=== PATIENT | male | born 2000 | race Caucasian/White ===

== ENCOUNTER 2024-05-21 06:49 | Emergency (ER) | payer OTHER, SELFPAY ==
[2024-05-21 06:51] VITALS: BP 138/98
[2024-05-21] MEDS: ZOFRAN 4 MG IV (07:19)
[2024-05-21] MEDS: TORADOL 30 MG IV (07:19)
[2024-05-21] MEDS: NSS 1000 IV (07:20)
[2024-05-21 07:22] VITALS: BMI 24.7
--- NOTE | 2024-05-21 07:22 | ED.GENMED ---
History of Present Illness
General
Chief Complaint: Cold/Flu/URI Symptoms
Source: patient and family
Exam Limitations: none
Time Seen by Provider: 05/21/24 07:04
Nursing documentation reviewed up to this point in time: agreed with
History of Present Illness
History of Present Illness:
24-year-old male limited past medical history nondrinker non-smoker he is a student presents with nausea vomiting diarrhea fever cough malaise only kept down some Gatorade for the past few days, no sick contacts no foreign travel no raw or
undercooked foods
Past History
Past History
ED Past Medical History: None
ED Past Surgical History: None
Social History
Tobacco: Non-smoker
Alcohol: None
Drug: None
Personal: Single
Living: with family
Employment: Student
Review of Systems
Review of Systems
All Other Systems: Not applicable
Constitutional: Reports fever and fatigue
Respiratory: Reports cough and trouble breathing
ABD/GI: Reports abdominal pain, nausea, vomiting and diarrhea
: Reports no symptoms
Musculoskeletal: Reports muscle pain
Neurological: Reports dizzy and weakness
Phy Exam
Physical Exam
Physical Exam:
Physical Exam
General: 24 male looks uncomfortable nontoxic
Neck: Dry lips
Heart: Tachycardia
Lungs: Crackles at the right mid lung field
Abdomen: Soft no guarding or rebound
Neuro: alert and oriented. no focal neurological deficits
Skin: no rash
Psychiatric: well kept. interactive and cooperative
Extremities: no edema.
Course
Orders/Labs/Results
Orders:
Orders
05/21/24 07:09
IV Insert/Care/Rem.- Treatment PRN
0.9% Sodium Chloride 1000 ml [Nss] 1,000 ml IV BOLUS
Ketorolac [Toradol] 30 mg IV NOW STA
Ondansetron Injectable [Zofran] 4 mg IV NOW STA
CR Chest - 2 Views Urgent
Comment:
Reason For Exam: fever
05/21/24 07:10
Norovirus by PCR Urgent
RAMIRO Source: Feces/Stool
Specimen Description:
05/21/24 07:19
COVID-19 Antigen Urgent
Source: Nasal Swab
Complete Blood Count/With Diff Urgent
Comprehensive Metabolic Panel Urgent
Lipase Urgent
Influenza A+B Rapid Molecular Urgent
RAMIRO Source: Nasal Swab
Specimen Description:
05/21/24 08:40
CefTRIAXone [Rocephin] 1,000 mg IV NOW STA
Abnormal Lab Results
05/21/24
07:19
MPV 11.1 H fL
(7.4-10.4)
Absolute Monos (auto) 1.1 H 10^3/uL
(0.1-0.6)
Lymphocytes % 16.9 L %
(20.5-51.1)
Monocytes % 14.2 H %
(1.7-9.3)
Glucose 118 H mg/dl
(70-99)
05/21/24 07:19
05/21/24 07:19
Vital Signs
Initial and Last Documented VS:
Initial Vital Signs
Temp Pulse Resp BP Pulse Ox
100.1 F 128 22 138/98 98
05/21/24 06:51 05/21/24 06:51 05/21/24 06:51 05/21/24 06:51 05/21/24 06:51
Last Documented Vital Signs
Temp Pulse Resp BP Pulse Ox
100.1 F 96 16 136/78 99
05/21/24 06:51 05/21/24 08:00 05/21/24 08:00 05/21/24 08:00 05/21/24 08:00
MDM/Problems Addressed
Differential Diagnosis Includes:
Viral syndrome pneumonia dehydration influenza norovirus
Chronic conditions affecting care:
Nausea vomiting diarrhea fever
*Radiology
Radiology exam reviewed: preliminary read by ED provider
*Pulse Oximetry
Patient hypoxic: no
*[employer] Interpretation
Rate: tachycardiac
Interpretation: abnormal
Heart Rate: 130
Rhythm: sinus
*Critical Care Note
Total Time (30-74mins, 75-104mins- exclusive of procedures): Not Applicable
Update Note
Update Note:
Update labs noted chest x-ray noted formal report pending will start on antibiotics patient looks improved patient and family updated
Update patient feeling better, up-to-date reviewed, patient appears to be a candidate for outpatient treatment
ED Attending Note
-
Portions of this chart may have been created with voice recognition software.� Occasional wrong word or��sound alike� substitutions may have occurred due to the inherent limitations of voice recognition software.
Discharge Plan
Departure
Patient Disposition: Home (Routine Discharge)
Date of Disposition: 05/21/24
Time of Disposition: 09:26
Patient with high blood pressure during this ER visit?: No
Condition: Good
Covid-19: Negative COVID-19
Discharge Problem:
Pneumonia
Instructions: Community-acquired pneumonia in adults
Prescriptions:
New
amoxicillin-pot clavulanate 875-125 mg tablet
1 tab PO Q12H Qty: 20 0RF
doxycycline hyclate 100 mg capsule
100 mg PO BID 7 Days Qty: 14 0RF
albuterol sulfate 90 mcg/actuation HFA aerosol inhaler
2 puff inhalation Q6H PRN (Reason: shortness of breath or wheezing) Qty: 8.5 0RF
ondansetron 4 mg tablet,disintegrating
4 mg PO Q8H PRN (Reason: nausea and vomiting) Qty: 14 0RF
No Action
calcium carbonate [Antacid (calcium carbonate)] 1 TABLET tablet,chewable
2 tab PO ONCE
ibuprofen [Advil] 200 MG tablet
400 mg PO ONCE
Referrals:
Herson Donald MD [Family Provider] -
Activity Restrictions/Additional Instructions:
Drink plenty of fluids
Tylenol or ibuprofen for fever
Antibiotics as prescribed albuterol 2 puffs every 4-6 hours for cough
Zofran every 6-8 hours for nausea vomiting
Return to the ER for worsening symptoms
Interventions
Interventions:
*Risk Screen - Suicide Last Done: 05/21/24 06:51
*General Assessment Last Done: 05/21/24 07:23
*Neglect/Abuse Screening Last Done: 05/21/24 06:51
ED- Fall Risk Assessment Last Done: 05/21/24 07:26
*ED COVID-19 Vaccine History Last Done: 05/21/24 07:22
ED- Neurological Assessment Last Done: 05/21/24 07:26
ED- Pulmonary Assessment Last Done: 05/21/24 07:26
ED-Skin Assessment Last Done: 05/21/24 07:26
Discharge Date and Time
Print Language: GUYANESE
[2024-05-21 07:34] LABS: % Basophils 0.4 % (0-2); % Eosinophils 0.3 % (0-6); % Immature Granulocytes 0.3 % (0-0.5); % Lymphocytes 16.9 % (20.5-51.1); % Monocytes 14.2 % (1.7-9.3); % Neutrophils 67.9 % (42.2-75.2); Absolute Lymphocytes 1.3 10^3/uL (1.2-3.4); Absolute Monocytes 1.1 10^3/uL (0.1-0.6); Hematocrit 43.9 % (39.0-52.0); Hemoglobin 14.9 g/dL (13.0-18.0); Mean Corp Hgb Conc. 33.9 g/dL (33.0-37.0); Mean Corpuscular Hgb 30.2 pg (27.0-31.0); Mean Corpuscular Volume 88.9 fL (80.0-94.0); Mean Platelet Volume 11.1 fL (7.4-10.4); Nucleated Red Blood Cells % 0 % (-); Platelet Count 197 10^3/uL (130-400); Red Blood Cell Count 4.94 10^6/uL (4.70-6.10); Red Cell Dist. Width 11.5 % (11.5-14.5); White Blood Cell Count 7.4 10^3/uL (4.8-10.8)
[2024-05-21 07:43] LABS: ALT (SGPT) 20 U/L (0-50); AST (SGOT) 29 U/L (17-59); Albumin 4.5 g/dl (3.5-5.0); Alkaline Phosphatase 63 U/L (38-126); Blood Urea Nitrogen 12 mg/dl (9-20); Calcium 9.6 mg/dl (8.4-10.2); Carbon Dioxide 27 mmol/L (22-30); Chloride 101 mmol/L (98-107); Estimated Creatinine Clearance > 125 ml/min; Glucose 118 mg/dl (70-99); Lipase 60 U/L (23-300); Potassium 3.7 mmol/L (3.5-5.1); Sodium 143 mmol/L (135-145); Total Bilirubin 0.5 mg/dl (0.2-1.3); Total Protein 7.1 g/dl (6.3-8.2); eGFR > 60.00
[2024-05-21 07:51] LABS: COVID-19 Antigen Negative (Negative)
[2024-05-21 08:00] VITALS: BP 136/78
[2024-05-21] MEDS: ROCEPHIN 1000 MG IV (08:48)
[2024-05-21 09:54] VITALS: BP 133/71
== END 2024-05-21 09:56 | disposition home or self-care (01) ==
LOC: EMR 06:49
PROVIDERS: EMERGENCY PHYSICIAN Emergency Medicine; FAMILY PHYSICIAN Family Medicine
DX: J18.9 Pneumonia, unspecified organism (principal); R11.2 Nausea with vomiting, unspecified; R19.7 Diarrhea, unspecified; Z11.52 Encounter for screening for COVID-19; K21.9 Gastro-esophageal reflux disease without esophagitis; Z86.16 Personal history of COVID-19
CPT/HCPCS: 99284; 96374; 96375 ×2; 96361; 71046; 80053; 83690; 85025; 87502; 87811